=== PATIENT | female | born 1995 | race African-American/Black ===

== ENCOUNTER 2017-08-30 06:04 | Inpatient (IN) ==
[2017-08-30] MEDS ORDERED: MEPERIDINE 50 MG/1 ML VIAL IM PRN (06:21)
[2017-08-30] MEDS ORDERED: BUTORPHANOL 1 MG/ML VIAL IV PRN (06:21)
[2017-08-30] MEDS ORDERED: LACTATED RINGERS 1,000 ML IV ONE ×2 (06:21→07:24)
[2017-08-30] MEDS ORDERED: ONDANSETRON 4 MG/2 ML VIAL IV PRN (06:21)
[2017-08-30] MEDS ORDERED: OXYTOCIN/LR 20 UNIT/1,000 ML BAG IV SCH (06:30)
[2017-08-30] MEDS ORDERED: LACTATED RINGERS 1,000 ML IV SCH ×2 (06:30→07:30)
[2017-08-30] MEDS ORDERED: AMPICILLIN INJ 2,000 MG in SODIUM CHLORIDE 0.9% 100 ML IV ONE (07:00)
[2017-08-30] MEDS ORDERED: diphenhydrAMINE 50 MG/1 ML VIAL IV PRN ×2 (07:24)
[2017-08-30] MEDS ORDERED: PROMETHAZINE 25 MG/1 ML VIAL IM ONE (07:24)
[2017-08-30] MEDS ORDERED: ePHEDrine 50 MG/ML AMP IV PRN (07:24)
[2017-08-30] MEDS ORDERED: LACTATED RINGERS 500 ML IV ONE (07:24)
[2017-08-30] MEDS ORDERED: hydrOXYzine HCL 25 MG/1 ML VIAL IM PRN (07:24)
[2017-08-30] MEDS ORDERED: fentaNYL 2 MCG/ROPIV 0.2% EPID 150 ML EPIDURAL SCH (07:30)
[2017-08-30 07:46] LABS: Basophils % 0.3 % (0.0-0.8); Eosinophils # 0.2 10*3/uL (0.0-0.87); Eosinophils % 1.5 % (0.00-10.9); Hematocrit 36.4 VOL% (35.7-47.0); Hemoglobin 12.4 GM/DL (12.0-16.0); Immature Granulocytes % 0.5 %; Immature Granulocytes Absolute 0.05 #; Lymphocytes # 1.5 10*3/uL (1.4-4.0); Mean Corpuscular HGB Conc 34.1 GM/DL (32-36); Mean Corpuscular Hemoglobin 28 PG (27-34); Mean Corpuscular Volume 81.4 FL (87-102); Mean Platelet Volume 11.5 FL (9.6-12.0); Monocytes # 0.7 10*3/uL (0.11-0.8); Monocytes % 6.6 % (1.7-12.7); Neutrophils # 7.8 10*3/uL (1.4-7.4); Neutrophils % 76.1 % (38.7-73.9); Platelet Count 183 T/CUMM (130-400); Red Blood Count 4.47 MC/CUMM (3.8-5.5); Red Cell Distribution Width 13.2 % (9.3-17.3); White Blood Count 10.3 T/CUMM (4-12)
[2017-08-30 08:12] LABS: Alanine Aminotransferase 19 U/L (13-56); Albumin 2.7 G/DL (3.4-5.0); Alkaline Phosphatase 270 U/L (45-117); Aspartate Amino Transferase 22 U/L (0-37); Bilirubin,Total < 0.39 MG/DL (0.2-1.0); Blood Urea Nitrogen 7 MG/DL (7-18); Calcium 8.7 MG/DL (8.5-10.1); Glucose 80 MG/DL (74-106); Osmolality,Calculated 271.7 MOS/KG (273-304); Potassium 4.3 MMOL/L (3.5-5.1); Sodium 138 MMOL/L (136-145); Total Protein 6.1 G/DL (6.4-8.3); Uric Acid 4.3 MG/DL (2.6-6.0)
[2017-08-30] MEDS ORDERED: CITRIC ACID/SODIUM CITRATE 30 ML UDCUP PO ONE (08:34)
[2017-08-30] MEDS ORDERED: FAMOTIDINE 20 MG/2 ML VIAL IV ONE (08:34)
[2017-08-30] MEDS ORDERED: AMPICILLIN INJ 1,000 MG in SODIUM CHLORIDE 0.9% 100 ML IV SCH (11:00)
[2017-08-30 11:41] LABS: Cord Venous Blood HCO3 23.7 MMOL/L; Cord Venous Blood PCO2 41.2 MMHG; Cord Venous Blood PO2 41.2 MMHG
[2017-08-30] MEDS ORDERED: BENZOCAINE 20%/MENTHOL 0.5% SPRAY 56 GM CAN TOP PRN (13:29)
[2017-08-30] MEDS ORDERED: ACETAMINOPHEN/CODEINE 300-30 MG TABLET PO PRN (13:29)
[2017-08-30] MEDS ORDERED: HYDROCORTISONE 2.5% RECTAL CREAM 30 GM TUBE TOP PRN (13:29)
[2017-08-30] MEDS ORDERED: ACETAMINOPHEN 325 MG TABLET PO PRN (13:29)
[2017-08-30] MEDS ORDERED: MEASLES/MUMPS/RUBELLA VACCINE 0.5 ML VIAL SUBCUT ONE (13:29)
[2017-08-30] MEDS ORDERED: DIPH/TET/ACEL PERT BOOSTER VACCINE 0.5 ML VIAL IM ONE (13:29)
[2017-08-30] MEDS ORDERED: BISACODYL 10 MG SUPP RECTAL PRN (13:29)
[2017-08-30] MEDS ORDERED: RHO(D) IMMUNE GLOBULIN 300 MCG SYRINGE IM ONE (13:29)
[2017-08-30] MEDS ORDERED: oxyCODONE/ACETAMINOPHEN 5-325 MG TABLET PO PRN ×2 (13:29)
[2017-08-30] MEDS ORDERED: WITCH HAZEL PADS 100/JAR TOP PRN (13:29)
[2017-08-30] MEDS ORDERED: LANOLIN 50% CREAM 0.3 OZ TUBE TOP PRN (13:29)
[2017-08-30] MEDS ORDERED: IBUPROFEN 800 MG TABLET PO PRN (13:29)
[2017-08-30] MEDS ORDERED: OXYTOCIN/LR 20 UNIT/1,000 ML BAG IV ONE (15:17)
[2017-08-30] MEDS: DOCUSATE SODIUM 100 MG CAPSULE PO SCH (21:49)
[2017-08-31 06:00] LABS: Basophils % 0.2 % (0.0-0.8); Eosinophils # 0.2 10*3/uL (0.0-0.87); Eosinophils % 1.4 % (0.00-10.9); Hematocrit 34.3 VOL% (35.7-47.0); Hemoglobin 11.2 GM/DL (12.0-16.0); Immature Granulocytes % 0.5 %; Immature Granulocytes Absolute 0.08 #; Lymphocytes % 13.6 % (21.3-54.2); Mean Corpuscular HGB Conc 32.7 GM/DL (32-36); Mean Corpuscular Hemoglobin 28 PG (27-34); Mean Corpuscular Volume 84.1 FL (87-102); Mean Platelet Volume 11.8 FL (9.6-12.0); Monocytes # 1.1 10*3/uL (0.11-0.8); Monocytes % 7.2 % (1.7-12.7); Neutrophils # 11.4 10*3/uL (1.4-7.4); Neutrophils % 77.1 % (38.7-73.9); Platelet Count 155 T/CUMM (130-400); Red Blood Count 4.08 MC/CUMM (3.8-5.5); Red Cell Distribution Width 13.1 % (9.3-17.3); White Blood Count 14.8 T/CUMM (4-12)
[2017-08-31] MEDS ORDERED: RHO(D) IMMUNE GLOBULIN 300 MCG SYRINGE IM ONE (09:10)
[2017-08-31] MEDS: DOCUSATE SODIUM 100 MG CAPSULE PO SCH ×2 (09:16→20:26)
[2017-09-01 08:44] VITALS: BP 111/71
[2017-09-01] MEDS: DOCUSATE SODIUM 100 MG CAPSULE PO SCH (09:16)
== END 2017-09-01 11:45 | disposition home or self-care (01) | DRG 775 ==
LOC: N.LDOUT 06:04 → N.LD 06:10 → N.OB 13:14
PROVIDERS: ADMIT Obstetrics & Gynecology; ATTEND Obstetrics & Gynecology

== ENCOUNTER 2020-04-06 10:26 | Inpatient (IN) ==
[2020-04-06] MEDS ORDERED: NIFEdipine 10 MG CAPSULE PO ONE ×2 (13:04→13:20)
[2020-04-06] MEDS ORDERED: miSOPROStoL 200 MCG TABLET ONE (14:21)
[2020-04-06] MEDS ORDERED: TRANEXAMIC ACID 1,000 MG/10 ML VIAL ONE (14:21)
[2020-04-06] MEDS ORDERED: SODIUM CHLORIDE 0.9% 100 ML IV ONE (14:22)
[2020-04-06] MEDS ORDERED: LIDOCAINE 1% 50 ML VIAL ONE (14:22)
[2020-04-06] MEDS ORDERED: METHYLERGONOVINE 0.2 MG/1 ML AMP ONE (14:22)
[2020-04-06] MEDS ORDERED: CARBOPROST TROMETHAMINE 250 MCG/ML AMP IM ONE (14:22)
[2020-04-06] MEDS ORDERED: ACETAMINOPHEN 500 MG TABLET PO ONE (15:29)
[2020-04-06] MEDS ORDERED: MEPERIDINE 50 MG/1 ML VIAL IM ONE (19:47)
[2020-04-06] MEDS ORDERED: PROMETHAZINE 25 MG/1 ML VIAL IM ONE (19:47)
[2020-04-06] MEDS: LACTATED RINGERS 1,000 ML IV SCH (20:24)
[2020-04-07] MEDS ORDERED: LACTATED RINGERS 1,000 ML IV SCH ×2 (04:30→09:30)
[2020-04-07] MEDS: LACTATED RINGERS 1,000 ML IV SCH (08:02)
[2020-04-07] MEDS ORDERED: LIDOCAINE 1% 50 ML VIAL MISC INJ ONE (09:18)
[2020-04-07] MEDS ORDERED: miSOPROStoL 200 MCG TABLET VAG PRN (09:18)
[2020-04-07] MEDS ORDERED: BUTORPHANOL 1 MG/ML VIAL IV PRN (09:18)
[2020-04-07] MEDS ORDERED: MEPERIDINE 50 MG/1 ML VIAL IM PRN (09:18)
[2020-04-07] MEDS ORDERED: ONDANSETRON 4 MG/2 ML VIAL IV PRN (09:18)
[2020-04-07] MEDS ORDERED: OXYTOCIN/LR 20 UNIT/1,000 ML BAG IV SCH (09:30)
[2020-04-07] MEDS ORDERED: LABETALOL 100 MG TABLET PO SCH (09:45)
[2020-04-07 09:49] LABS: Basophils % 0.4 % (0.0-0.8); Eosinophils # 0.2 10*3/uL (0.0-0.87); Eosinophils % 2.3 % (0.00-10.9); Hematocrit 35.3 VOL% (35.7-47.0); Hemoglobin 11.7 GM/DL (12.0-16.0); Immature Granulocytes % 0.3 %; Immature Granulocytes Absolute 0.02 #; Lymphocytes # 1.6 10*3/uL (1.4-4.0); Lymphocytes % 20.1 % (21.3-54.2); Mean Corpuscular HGB Conc 33.1 GM/DL (32-36); Mean Corpuscular Volume 82.7 FL (87-102); Mean Platelet Volume 11.2 FL (9.6-12.0); Monocytes % 6.6 % (1.7-12.7); Neutrophils % 70.3 % (38.7-73.9); Platelet Count 195 T/CUMM (130-400); Red Blood Count 4.27 MC/CUMM (3.8-5.5); Red Cell Distribution Width 13.1 % (9.3-17.3); White Blood Count 7.9 T/CUMM (4-12)
[2020-04-07 10:08] LABS: INR 0.9; PT Patient Result 9.6 SECS (9.8-11.9); Partial Thromboplastin Time 26.5 SECS (23.9-33.8)
[2020-04-07 10:13] LABS: Hypochromasia 1+; Microcytosis 1+; Platelet Estimate Adequate
[2020-04-07 10:17] LABS: Alanine Aminotransferase 13 U/L (13-56); Albumin 2.5 G/DL (3.4-5.0); Alkaline Phosphatase 282 U/L (45-117); Aspartate Amino Transferase 12 U/L (0-37); Bilirubin,Total < 0.39 MG/DL (0.2-1.0); Blood Urea Nitrogen 7 MG/DL (7-18); Calcium 8.5 MG/DL (8.5-10.1); Estimated Glom Filtration Rate 157 ML/MIN; Glucose 82 MG/DL (74-106); Osmolality,Calculated 273.5 MOS/KG (273-304); Total Protein 6.4 G/DL (6.4-8.3)
[2020-04-07] MEDS ORDERED: ePHEDrine 50 MG/ML VIAL IV PRN (10:30)
[2020-04-07] MEDS ORDERED: NALOXONE 0.4 MG/ML VIAL IV PRN (10:30)
[2020-04-07] MEDS ORDERED: LACTATED RINGERS 1,000 ML IV ONE (10:30)
[2020-04-07] MEDS ORDERED: FAMOTIDINE 20 MG/2 ML VIAL IV ONE (10:30)
[2020-04-07] MEDS ORDERED: diphenhydrAMINE 50 MG/1 ML VIAL IV PRN ×2 (10:30)
[2020-04-07] MEDS ORDERED: PROMETHAZINE 25 MG/1 ML VIAL IM ONE (10:30)
[2020-04-07] MEDS ORDERED: CITRIC ACID/SODIUM CITRATE 30 ML UDCUP PO ONE (10:30)
[2020-04-07] MEDS ORDERED: fentaNYL 2 MCG/ROPIV 0.2% EPID 100 ML EPIDURAL SCH (10:30)
[2020-04-07] MEDS ORDERED: hydrOXYzine HCL 25 MG/1 ML VIAL IM PRN (10:30)
[2020-04-07 13:06] LABS: Bilirubin,Urine Negative (Negative); Blood, Urine Negative (Negative); Glucose,Urine (UA) Negative (Negative); Hyaline Casts,Urine 1 /LPF (0-3); Ketones,Urine Negative (Negative); Nitrite,Urine Negative (Negative); Protein,Urine 30 MG/DL; Urine Appearance CLEAR (Clear); Urine Color Straw (Yellow); Urine Specific Gravity 1.005 (1.001-1.035); Urine Urobilinogen < 2.0 EU/DL (0.2-1.0); WBC,Urine <1 /HPF (0-6)
[2020-04-07 14:18] LABS: Cord Venous Blood HCO3 23.8 MMOL/L; Cord Venous Blood PCO2 39.9 MMHG
[2020-04-07] MEDS ORDERED: MEASLES/MUMPS/RUBELLA VACCINE 0.5 ML VIAL SUBCUT ONE (16:26)
[2020-04-07] MEDS ORDERED: BISACODYL 10 MG SUPP RECTAL PRN (16:26)
[2020-04-07] MEDS ORDERED: LANOLIN 50% CREAM 0.3 OZ TUBE TOP PRN (16:26)
[2020-04-07] MEDS ORDERED: WITCH HAZEL PADS 100/JAR TOP PRN (16:26)
[2020-04-07] MEDS ORDERED: oxyCODONE/ACETAMINOPHEN 5-325 MG TABLET PO PRN ×2 (16:26)
[2020-04-07] MEDS ORDERED: HYDROCORTISONE 2.5% RECTAL CREAM 30 GM TUBE TOP PRN (16:26)
[2020-04-07] MEDS ORDERED: ACETAMINOPHEN 325 MG TABLET PO PRN (16:26)
[2020-04-07] MEDS ORDERED: OXYTOCIN/LR 20 UNIT/1,000 ML BAG IV ONE (16:26)
[2020-04-07] MEDS ORDERED: BENZOCAINE 20%/MENTHOL 0.5% SPRAY 56 GM CAN TOP PRN (16:26)
[2020-04-07] MEDS ORDERED: RHO(D) IMMUNE GLOBULIN 300 MCG SYRINGE IM ONE (16:26)
[2020-04-07] MEDS ORDERED: DIPH/TET/ACEL PERT BOOSTER VACCINE 0.5 ML VIAL IM ONE (16:26)
[2020-04-07] MEDS: IBUPROFEN 800 MG TABLET PO PRN (20:27)
[2020-04-07] MEDS: DOCUSATE SODIUM 100 MG CAPSULE PO SCH (20:27)
[2020-04-08 05:56] LABS: Basophils % 0.4 % (0.0-0.8); Eosinophils # 0.2 10*3/uL (0.0-0.87); Eosinophils % 2.1 % (0.00-10.9); Hematocrit 34.3 VOL% (35.7-47.0); Hemoglobin 11.3 GM/DL (12.0-16.0); Immature Granulocytes % 0.4 %; Immature Granulocytes Absolute 0.04 #; Lymphocytes % 17.8 % (21.3-54.2); Mean Corpuscular HGB Conc 32.9 GM/DL (32-36); Mean Corpuscular Volume 83.5 FL (87-102); Mean Platelet Volume 11.1 FL (9.6-12.0); Monocytes % 7.8 % (1.7-12.7); Neutrophils % 71.5 % (38.7-73.9); Platelet Count 182 T/CUMM (130-400); Red Blood Count 4.11 MC/CUMM (3.8-5.5)
[2020-04-08] MEDS ORDERED: RHO(D) IMMUNE GLOBULIN 300 MCG SYRINGE IM ONE (07:45)
[2020-04-08] MEDS: DOCUSATE SODIUM 100 MG CAPSULE PO SCH ×3 (09:24→20:34)
[2020-04-08] MEDS: IBUPROFEN 800 MG TABLET PO PRN ×2 (09:25→21:00)
[2020-04-09 07:15] VITALS: BP 125/76
[2020-04-09] MEDS: DOCUSATE SODIUM 100 MG CAPSULE PO SCH (08:47)
== END 2020-04-09 14:05 | disposition home or self-care (01) | DRG 807 ==
LOC: N.LDOUT 10:26 → N.LD 04-07 07:04 → N.OB 04-07 16:36
PROVIDERS: ADMIT Obstetrics & Gynecology; ATTEND Obstetrics & Gynecology